=== PATIENT | female | born 1965 | race Caucasian/White ===

== ENCOUNTER 2019-11-24 01:34 | Emergency (ER) | payer MEDICAID ==
[2019-11-24] MEDS ORDERED: Phenazopyridine 95 MG Tab PO ONE (02:18)
--- NOTE | 2019-11-24 02:23 | EDM.PDOC ---
ED HPI GENERAL MEDICAL PROBLEM - General Chief Complaint: Genitourinary Problem Stated Complaint: BLADDER INFECTION Time Seen by Provider: 11/24/19 02:14 Source of Information: Reports: Patient, RN Notes Reviewed History Limitations: Reports: No Limitations - History of Present Illness INITIAL COMMENTS - FREE TEXT/NARRATIVE: 54-year-old female presents emergency department a complaint of dysuria, she states her symptoms started about 2 days prior to presentation it has progressively gotten worse she has not had any fever she has urgency and frequency but no fevers Lower Groin Pain Score (Numeric/FACES): 8 - Related Data Allergies Allergy/AdvReac Type Severity Reaction Status Date / Time No Known Allergies Allergy Verified 11/24/19 01:43 Home Meds: Home Meds NK [No Known Home Meds] 11/24/19 [History] Past Medical History HEENT History: Reports: Impaired Vision Genitourinary History: Reports: UTI, Recurrent [employer] SPECIALIST History: Reports: - Past Surgical History HEENT Surgical History: Reports: Tonsillectomy Social & Family History - Tobacco Use Smoking Status *Q: Current Every Day Smoker Years of Tobacco use: 40 Packs/Tins Daily: 1 - Caffeine Use Caffeine Use: Reports: Coffee - Recreational Drug Use Recreational Drug Use: No ED ROS GENERAL - Review of Systems Review Of Systems: See Below Constitutional: Denies: Fever, Chills Respiratory: Reports: No Symptoms Cardiovascular: Reports: No Symptoms GI/Abdominal: Reports: Abdominal Pain : Reports: Dysuria, Flank Pain, Frequency, Urgency ED EXAM, RENAL/ - Physical Exam Exam: See Below Exam Limited By: No Limitations General Appearance: Alert, WD/WN, No Apparent Distress Respiratory/Chest: No Respiratory Distress GI/Abdominal: Soft, No Organomegaly, No Distention, Tender (Suprapubic left flank) Back Exam: Normal Inspection, Full Range of Motion, CVA Tenderness (L). No: CVA Tenderness (R) Course - Vital Signs Last Recorded V/S: Last Vital Signs Temp 97.1 F 11/24/19 01:49 Pulse 69 11/24/19 01:49 Resp 16 11/24/19 01:49 BP 178/96 H 11/24/19 01:49 Pulse Ox 99 11/24/19 01:49 - Orders/Labs/Meds Orders: Active Orders 24 hr Category Date Time Status CULTURE URINE [RM] Urgent Lab 11/24/19 02:14 Ordered Phenazopyridine [Urinary Pain Relief] Med 11/24/19 02:18 Once 190 mg PO ONETIME ONE Medication Orders Phenazopyridine HCl (Urinary Pain Relief) 190 mg PO ONETIME ONE Stop: 11/24/19 02:19 Labs: Laboratory Tests 11/24/19 Range/Units 01:51 Urine Color Yellow (YELLOW) Urine Appearance Cloudy A (CLEAR) Urine pH 6.0 (5.0-8.0) Ur Specific [place] >= 1.030 (1.008-1.030) Urine Protein Trace H (NEGATIVE) mg/dL Urine Glucose (UA) Negative (NEGATIVE) mg/dL Urine Ketones Negative (NEGATIVE) mg/dL Urine Occult Blood Moderate H (NEGATIVE) Urine Nitrite Negative (NEGATIVE) Urine Bilirubin Negative (NEGATIVE) Urine Urobilinogen 0.2 (0.2-1.0) EU/dL Ur Leukocyte Esterase Moderate H (NEGATIVE) Urine RBC 0-5 (0-5) Urine WBC 75-100 H (0-5) Ur Epithelial Cells Few Amorphous Sediment Not seen Urine Bacteria Moderate Urine Mucus Not seen Meds: Medications Generic Name Dose Route Start Last Admin Trade Name Freq PRN Reason Stop Dose Admin Phenazopyridine HCl 190 mg 11/24/19 02:18 Urinary Pain Relief PO 11/24/19 02:19 ONETIME ONE Departure - Departure Time of Disposition: 02:22 Disposition: Home, Self-Care 01 Condition: Fair Clinical Impression: UTI, Urinary tract infectious disease - Discharge Information Instructions: Urinary Tract Infection, Adult Referrals: PCP,None [Primary Care Provider] - Additional Instructions: Take full course of antibiotics, use Tylenol or Motrin as needed for pain and fever control, follow-up with your primary care upon return home if not better, we will contact you when the culture results become available. Sepsis Event Note - Evaluation Sepsis Screening Result: No Definite Risk - Focused Exam Vital Signs: Vital Signs Temp Pulse Resp BP Pulse Ox 11/24/19 01:49 97.1 F 69 16 178/96 H 99 Date Exam was Performed: 11/24/19 Time Exam was Performed: 02:19 - My Orders Last 24 Hours: My Active Orders 11/24/19 02:14 CULTURE URINE [RM] Urgent 11/24/19 02:18 Phenazopyridine [Urinary Pain Relief] 190 mg PO ONETIME ONE - Assessment/Plan Last 24 Hours: My Active Orders 11/24/19 02:14 CULTURE URINE [RM] Urgent 11/24/19 02:18 Phenazopyridine [Urinary Pain Relief] 190 mg PO ONETIME ONE Plan: Assessment Acuity = acute Site and laterality = urinary tract infection concern for early pyelonephritis Etiology = bacterial cause Manifestations = urgency, frequency, dysuria Location of injury = Home Lab values = urinalysis reveals moderate leukocyte esterase with 75-100 WBCs consistent with pyuria cultures pending Plan Elect to treat empirically Bactrim DS 1 tab p.o. twice daily x10 days, given 1 dose of Pyridium in the emergency department now follow-up with primary care upon return home if not better will contact when culture results become available This note was dictated using [email or web address] voice recognition software please call with any questions on syntax or grammar.
== END 2019-11-24 02:26 | disposition home or self-care (01) ==
LOC: JP.ED 01:34
DX: N39.0 Urinary tract infection, site not specified (principal); F17.210 Nicotine dependence, cigarettes, uncomplicated
CPT/HCPCS: 81001; 87086; 87088; 87186; 99283; A9270

== ENCOUNTER 2021-08-12 19:40 | Emergency (ER) | payer MEDICAID ==
[2021-08-12] MEDS: Methocarbamol 500 MG Tab PO ONE (22:11)
== END 2021-08-12 23:27 | disposition home or self-care (01) ==
LOC: JP.ED 19:40
DX: M54.50 Low back pain, unspecified (principal); Z87.891 Personal history of nicotine dependence
CPT/HCPCS: 72131; 99283; 99283-25; A9270-GY

== ENCOUNTER 2021-12-17 08:52 | Emergency (ER) | payer MEDICAID | END 2021-12-17 11:04 | disposition home or self-care (01) | LOC: JP.ED 08:52 | DX: S46.912A Strain of unspecified muscle, fascia and tendon at shoulder and upper arm level, left arm, initial encounter (principal); Z87.891 Personal history of nicotine dependence; W18.09XA Striking against other object with subsequent fall, initial encounter | CPT/HCPCS: 73080-26-LT; 73080-LT; 99281; 99283 ==

== ENCOUNTER 2023-07-28 10:01 | Emergency (ER) | payer MEDICAID ==
[2023-07-28 11:04] LABS: BASOPHILS PERCENT AUTO 0.3 % (0.1-1.3); EOSINOPHILS ABSOLUTE AUTO 0.17 K/uL (0.00-0.40); EOSINOPHILS PERCENT AUTO 2.7 % (0.0-5.4); HEMATOCRIT 41.9 % (34.3-46.0); HEMOGLOBIN 13.9 g/dL (11.2-15.5); IMMATURE GRAN PERCENT AUTO 0.3 % (0.0-0.7); LYMPHOCYTES PERCENT AUTO 31.8 % (11.4-47.7); MEAN CORPUSCULAR HEMOGLOBIN 27.9 pg (31.6-35.5); MEAN CORPUSCULAR HGB CONC 33.2 g/dL (31.6-35.5); MONOCYTES ABSOLUTE AUTO 0.52 K/uL (0.20-0.90); MONOCYTES PERCENT AUTO 8.3 % (3.3-12.6); NEUTROPHILS ABSOLUTE AUTO 3.56 K/uL (1.0-7.6); NEUTROPHILS PERCENT AUTO 56.6 % (40.0-78.1); PLATELET COUNT,PLT 178 K/uL (130-375); RED BLOOD CELL COUNT 4.99 M/uL (3.77-5.24); WHITE BLOOD CELL COUNT,WBC 6.3 K/uL (3.2-11.0)
[2023-07-28 11:05] LABS: BASOPHILS ABSOLUTE AUTO 0.02 K/uL (0.00-0.10); IMMATURE GRAN ABSOLUTE AUTO 0.02 K/uL (0.00-0.23)
[2023-07-28 11:33] LABS: SEDIMENTATION RATE MANUAL 16 mm/hr (0-25)
[2023-07-28] MEDS ORDERED: Sodium Chloride 0.9% 50 ML IV SCH (12:30)
[2023-07-28] MEDS ORDERED: Iopamidol 612 MG/ML 100 ML Bottle IV SCH (12:30)
== END 2023-07-28 14:13 | disposition home or self-care (01) ==
LOC: JP.ED 10:01
DX: J02.9 Acute pharyngitis, unspecified (principal); Z87.891 Personal history of nicotine dependence
CPT/HCPCS: 36415; 70360; 70491; 85025; 85651; 86140; 87651; 99283; 99285; J3490; Q9967